=== PATIENT | female | born 2000 | race Caucasian/White ===

== ENCOUNTER 2023-10-07 19:31 | Emergency (ER) | payer OTHER, BC, SELFPAY ==
[2023-10-07 19:35] VITALS: BP 140/95; PULSE 74; RESP 18; TEMP 36.5; O2SAT 99
[2023-10-07 19:47] VITALS: BMI 35.1
--- NOTE | 2023-10-07 19:47 | EX.ED.GENINJ ---
HPI <ROOPA Washburn Last Filed: 10/07/23 21:47> History of Present Illness Chief Complaint: Laceration Narrative Narrative: Patient presented today with lacerations to her right second and third fingers that she got this evening at work. 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 Tetanus is not up-to-date. PFSH <ROOPA Washburn Last Filed: 10/07/23 21:47> PFSH Allergy/AdvReac Type Severity Reaction Status Date / Time Food Allergies: Uncoded AdvReac Other Verified 10/07/23 19:35 Social History Smoking Status: Current some day smoker tobacco type: e-cigarettes ROS <ROOPA Washburn Last Filed: 10/07/23 21:47> ROS ED Constitutional Constitutional ED: Denies chills or fever(s) Cardiovascular Cardiovascular: Denies chest pain Respiratory/Chest Respiratory/Chest: Denies cough or dyspnea Gastrointestinal Gastrointestinal: Denies abdominal pain, nausea or vomiting Musculoskeletal Musculoskeletal: Denies arthralgias or myalgias Integumentary Reports laceration Neurologic Neurologic: Denies paresthesias EXAM <ROOPA Washburn Last Filed: 10/07/23 21:47> Physical Exam Const Vital Signs: 10/07/23 19:35 10/07/23 21:59 Temperature 97.7 F L 97.7 F L Temperature Source Temporal Pulse Rate 74 70 Respiratory Rate 18 18 Blood Pressure 140/95 H 131/87 H Blood Pressure Mean 110 101 Pulse Ox 99 97 Oxygen Delivery Method Room Air Positive well nourished, well developed and no apparent distress General Appearance ED: well developed HEENT Reports normocephalic and head/scalp atraumatic Mouth ED: Yes moist mucous membranes normal Eyes PERRL and EOMs intact bilaterally Neck full ROM and supple Chest Wall inspection of chest normal Resp normal respiratory effort and clear to auscultation bilaterally Cardio regular rate and regular rhythm GI soft to palpation, non-tender, non-distended and no masses Back/Spine normal ROM and normal to inspection Extremity full ROM Extremity Narrative: 0.5 cm avulsions to the distal aspect of the right second and third fingers. Active bleeding. Right radial pulse 2+, good capillary refill, sensation intact. Full flexion/ extension at the MCP, PIP, and DIP joints of the R hand. Neuro oriented x3, CN's II-XII intact bilaterally, moves all extremities, no focal motor deficits and no sensory deficits noted Sensorium / Orientation: awake and alert Psych mental status grossly normal and thought process normal <Felix Mcneill MD - Last Filed: 10/08/23 00:00> Physical Exam Const Vital Signs: 10/07/23 19:35 10/07/23 21:59 Temperature 97.7 F L 97.7 F L Temperature Source Temporal Pulse Rate 74 70 Respiratory Rate 18 18 Blood Pressure 140/95 H 131/87 H Blood Pressure Mean 110 101 Pulse Ox 99 97 Oxygen Delivery Method Room Air [facility] <ROOPA Washburn - Last Filed: 10/07/23 21:47> [facility] Narrative Medical decision making narrative: Patient presenting with avulsions to the right second and third fingertips that 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 Her tetanus will be updated, she was given ibuprofen for pain. Fingers were placed in a turnicot, I copiously irrigated the fingers and cleaned them. I then applied Surgicel to the fingertips and put on a pressure bandage. I cut off the turnicot and patient immediately began to bleed through the bandage from both fingers. I then applied Gelfoam over top, patient was then placed in another pressure bandage and observed for several minutes, she had a small amount of bleeding to the third finger and I repeated this process. She was then observed for about 40 minutes without any recurrence of her bleeding, hemostasis is achieved. Wound care instructions were discussed, have encouraged that she follow-up with her PCP to ensure the wounds are healing well. Return instructions discussed and patient discharged home in stable condition. 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 Her tetanus will be updated, she was given ibuprofen for pain. Fingers were placed in a turnicot, I copiously irrigated the fingers and cleaned them. I then applied Surgicel to the fingertips and put on a pressure bandage. I cut off the turnicot and patient immediately began to bleed through the bandage from both fingers. I then applied Gelfoam over top, patient was then placed in another pressure bandage and observed for several minutes, she had a small amount of bleeding to the third finger and I repeated this process. She was then observed for about 40 minutes without any recurrence of her bleeding, hemostasis is achieved. Wound care instructions were discussed, have encouraged that she follow-up with her PCP to ensure the wounds are healing well. Return instructions discussed and patient discharged home in stable condition. Dr. Mcneill: I have personally performed a face to face assessment of the patient and have reviewed the TISH Note. I performed a substantive portion of the visit including all aspects of the following. My coffey findings include: History is patient sustained avulsion lacerations to the tips/fingerpads of the second and third digit on her right hand. She was at work and thought she heard the click of the [employer] shellfish meat separator operator stopping, but apparently it had not. Exam is positive avulsion lacerations on finger pads of second and third digits, positive active bleeding Medical Decision Making: Hemostasis will be achieved through Gelfoam and pressure as suturing is not feasible. These avulsions will have to heal by secondary intent. She should have a wound check by the [facility] as this is a work-related injury. She was given a note to return to work with restrictions with no use of her right hand until cleared. Disposition is discharged in stable condition. Other additions or changes: [None] Discharge Plan Triage Chief Complaint: Laceration ED Midlevel Provider: Caitlin Veronica ED Provider: Felix Mcneill Dx/Rx/DC Orders Clinical Impression: Avulsion of finger tip Instructions: ED Skin Tear (Skin Avulsion) Primary Care Provider: Care Physician,No Primary Referrals: Care Physician,No Primary [Primary Care Provider] - Activity Restrictions/Additional Instructions: Please return or follow-up with your PCP for any signs of infection. Keep bandages on for the next 2 days. Keep fingers clean and bandaged. Disposition Disposition: Home, Self Care Discharge Date/Time: 10/07/23 22:00
[2023-10-07] MEDS: Diphth,Pertuss(Acell),Tet Vac 0.5 ML Vial IM (20:06)
[2023-10-07] MEDS: Ibuprofen 600 MG Tablet PO (20:44)
[2023-10-07 21:59] VITALS: BP 131/87; PULSE 70; RESP 18; TEMP 36.5; O2SAT 97
== END 2023-10-07 22:00 | disposition home or self-care (01) ==
PROVIDERS: Emergency Provider Emergency Medicine; Visit Provider Emergency Medicine
DX: S61.200A Unspecified open wound of right index finger without damage to nail, initial encounter (principal); Y93.89 Activity, other specified; Y99.0 Civilian activity done for income or pay; Y92.512 Supermarket, store or market as the place of occurrence of the external cause; F17.290 Nicotine dependence, other tobacco product, uncomplicated; Z23 Encounter for immunization; S61.202A Unspecified open wound of right middle finger without damage to nail, initial encounter
CPT/HCPCS: 90715; 99282

== ENCOUNTER 2023-11-21 19:11 | Emergency (ER) | payer OTHER, BC, SELFPAY ==
[2023-11-21 19:12] VITALS: BP 152/80; PULSE 79; RESP 18; TEMP 36.7; O2SAT 98; BMI 35.5
[2023-11-21] MEDS: Lidocaine 2% (20 ml mdv) 20 ML Vial INFILT (22:37)
--- NOTE | 2023-11-21 22:45 | RAD_ITS ---
INDICATION: injury EXAMINATION/TECHNIQUE: X-RAY - LEFT XR Hand Min 3 Views 3 VIEWS COMPARISON: FINDINGS: SOFT TISSUES: Soft tissue injury of the fifth finger. No radiopaque foreign body. BONES/JOINTS: No acute fracture or subluxation.. Normal alignment. Preservation of the joint space.. No sclerotic or destructive changes observed. RAD/Hand Min 3 Views IMPRESSION: Soft tissue injury of the fifth finger. Electronically Signed: Mahad Salamanca DO at 0:01 EDT ,
[2023-11-21 23:11] VITALS: PULSE 85; RESP 18; O2SAT 95
--- NOTE | 2023-11-22 00:35 | EDS_ITS ---
HPI History of Present Illness Chief Complaint: Laceration Informant: patient Narrative Narrative: Patient is a 23-year-old female transitioning to male with no significant past medical history who is right-hand dominant. 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 He reports his tetanus status was updated just 1 to 2 weeks ago as he had a similar event to the right hand. He denies any loss of movement or sensation but has concern he may need the area closed and therefore comes in for evaluation [facility] Medical History (Updated 11/22/23 @ 00:[address] Jose Stout, DO) Open wound of right middle finger Cut of skin of right index finger Allergy/AdvReac Type Severity Reaction Status Date / Time Food Allergies: Uncoded AdvReac Other Verified 11/21/23 19:12 Social History Smoking Status: Current some day smoker tobacco type: e-cigarettes ROS ROS ED Constitutional Constitutional ED: Denies chills or fever(s) ENT ENT ED: Denies sore throat Cardiovascular Cardiovascular: Denies chest pain Respiratory/Chest Respiratory/Chest: Denies cough or dyspnea Gastrointestinal Gastrointestinal: Denies abdominal pain, diarrhea, nausea or vomiting Musculoskeletal Musculoskeletal: Reports other Details: Positive left hand/finger pain Integumentary Reports other Details: Positive left finger laceration Neurologic Neurologic: Denies headache(s), paresthesias or weakness Psychiatric Psychiatric: Reports anxiety Hematologic/Lymphatic Hematologic/Lymphatic: Denies easy bleeding or easy bruising EXAM Physical Exam Const Vital Signs: 11/21/23 19:12 11/21/23 23:11 11/22/23 01:10 Temperature 98.1 F 97.9 F Temperature Source Temporal Pulse Rate 79 85 80 Respiratory Rate 18 18 18 Blood Pressure 152/80 H 145/60 H Blood Pressure Mean 104 88 Pulse Ox 98 95 98 Oxygen Delivery Method Room Air Room Air Positive well nourished and well developed General Appearance ED: well developed HEENT HEENT Narrative: Normocephalic atraumatic Eyes PERRL and EOMs intact bilaterally General Eye ED: Negative for pale conjunctiva Neck supple Resp normal respiratory effort and clear to auscultation bilaterally Cardio regular rate and regular rhythm Extremity Extremity Narrative: Left upper extremity is neurovascularly intact. Patient has a dermal layer deep essentially skin avulsion along the lateral aspect of the left fifth finger from the tip of the finger/distal phalanx to just before the MTP joint. There is minimal ooze of blood and no foreign body. No ligamentous or tendon injury. Laceration is 3.5 cm in length. No involvement of the nailbed Neuro oriented x3, CN's II-XII intact bilaterally and no sensory deficits noted Sensorium / Orientation: alert Motor Exam: strength 5/5 throughout Psych mental status grossly normal Skin Skin Narrative: Skin laceration/avulsion as documented above MDM MDM MDM Narrative Medical decision making narrative: Patient arrived to the ER with laceration to the nondominant hand. His tetanus status was updated recently so therefore there is no need to provide this. With concern for potential open fracture and x-ray was obtained but revealed no retained foreign body or signs of fracture. Therefore the patient had the wound closed as documented below and as he has no signs of secondary infection ligamentous or tendon damage or open fracture there is no need for further evaluation in the ER and he is otherwise safe for discharge Patient had the left fifth finger cleaned with chlorhexidine. It was anesthe tized with 8 mL of 2% lidocaine without epinephrine and digital block fashion. The wound was copiously irrigated with normal saline. Then nineteen 4-0 Ethilon sutures were placed in simple interrupted fashion to bring the wound together good approximation. Patient tolerated procedure well without complication Radiography Diagnostic Testing: Clinical Impression(s) from Imaging Studies Hand X-Ray 11/21/23 22:45 IMPRESSION: Soft tissue injury of the fifth finger. Electronically Signed: Mahad Salamanca DO at 0:01 EDT Reading Location ID and State: [facility] / [place] Tel [phone], Service support , Left hand x-ray as interpreted by the emergency medicine physician reveals no acute fracture dislocation or retained foreign body Discharge Plan Triage Chief Complaint: Laceration ED Provider: Jose Stout Dx/Rx/DC Orders Clinical Impression: Laceration of left little finger, [id number] transgender person Instructions: ED Laceration, Hand: All Closures Primary Care Provider: Care Physician,No Primary Referrals: Corporate,Care [Group of Physicians] - Care Physician,No Primary [Primary Care Provider] - Activity Restrictions/Additional Instructions: Please keep your pressure wrap on for the next 12 hours to help stop bleeding from the laceration. Follow-up with your family doctor Workmen's Compensation and/or the emergency department in the next 10 to 14 days for suture removal. Print Language: Divehi Disposition Disposition: Home, Self Care Discharge Date/Time: 11/22/23 01:10
[2023-11-22 01:10] VITALS: BP 145/60; PULSE 80; RESP 18; TEMP 36.6; O2SAT 98
== END 2023-11-22 01:10 | disposition home or self-care (01) ==
PROVIDERS: Emergency Provider Emergency Medicine; Visit Provider Emergency Medicine
DX: S61.217A Laceration without foreign body of left little finger without damage to nail, initial encounter (principal); Y99.0 Civilian activity done for income or pay; F17.210 Nicotine dependence, cigarettes, uncomplicated; W29.8XXA Contact with other powered hand tools and household machinery, initial encounter; Y92.89 Other specified places as the place of occurrence of the external cause; F64.0 Transsexualism
CPT/HCPCS: 12002; 73130; 99283